=== PATIENT | female | born 1950 | race Caucasian/White ===

== ENCOUNTER → 2017-02-02 21:31 | Outpatient (CLI) | payer MEDICARE ==
[2014-02-09 07:19] VITALS: BMI 39.5
[~2017-02-02 21:31] MED LIST: ALTOPREV40 MG PO; CARAFATE1 G PO; CYCLOBENZAPRINE10 MG PO; DIOVAN80 MG PO; EFFEXOR75 MG PO; ESTRACE 0.5 MG0.5 MG PO; MELATONIN 3 MG1 TAB PO; PROVERA2.5 MG PO; RELAFEN500 MG PO; SYNTHROID50 MCG PO; ULTRAM50 MG PO
== END | disposition home or self-care (01) ==
LOC: D.MAMMO 13:00
DX: Z12.31 Encounter for screening mammogram for malignant neoplasm of breast (principal)

== ENCOUNTER → 2017-09-29 06:57 | Outpatient (CLI) | payer MEDICARE, OTHER ==
[2014-02-09 07:19] VITALS: BMI 39.5
== END | disposition home or self-care (01) ==
LOC: D.MRI 09-22 07:30
DX: M25.512 Pain in left shoulder (principal)

== ENCOUNTER → 2018-03-31 09:30 | Outpatient (CLI) | payer MEDICARE, OTHER ==
[2014-02-09 07:19] VITALS: BMI 39.5
== END | disposition home or self-care (01) ==
LOC: D.HCCARDIO 09:30
DX: I20.9 Angina pectoris, unspecified (principal)

== ENCOUNTER 2018-10-21 09:00 | Outpatient (CLI) | payer MEDICARE, OTHER ==
[2014-02-09 07:19] VITALS: BMI 39.5
== END 2018-10-21 10:00 | disposition home or self-care (01) ==
LOC: D.MAMMO 09:00
PROVIDERS: ATTEND Obstetrics & Gynecology
DX: Z12.31 Encounter for screening mammogram for malignant neoplasm of breast (principal)

== ENCOUNTER → 2019-08-03 09:00 | Outpatient (CLI) | payer MEDICARE, OTHER ==
[2014-02-09 07:19] VITALS: BMI 39.5
== END | disposition home or self-care (01) ==
LOC: D.HCCECHO 09:00
PROVIDERS: ATTEND Internal Medicine Cardiovascular Disease
DX: I10 Essential (primary) hypertension (principal)

== ENCOUNTER 2019-11-15 15:00 | Outpatient (CLI) | payer MEDICARE, OTHER ==
[2014-02-09 07:19] VITALS: BMI 39.5
== END 2019-11-15 23:59 | disposition home or self-care (01) ==
LOC: D.MAMMO 15:00
PROVIDERS: ATTEND Family Medicine
DX: Z12.31 Encounter for screening mammogram for malignant neoplasm of breast (principal)

== ENCOUNTER → 2020-08-12 10:04 | Outpatient (CLI) | payer OTHER ==
[2014-02-09 07:19] VITALS: BMI 39.5
== END | disposition home or self-care (01) ==
LOC: D.HCCECHO 10:00
PROVIDERS: ATTEND Internal Medicine Cardiovascular Disease
DX: I34.0 Nonrheumatic mitral (valve) insufficiency (principal)

== ENCOUNTER → 2020-09-06 09:06 | Outpatient (CLI) | payer OTHER ==
[2014-02-09 07:19] VITALS: BMI 39.5
== END | disposition home or self-care (01) ==
LOC: D.CT 09:06
PROVIDERS: ATTEND Family Medicine
DX: R31.9 Hematuria, unspecified (principal)